=== PATIENT | male | born 1955 | race Caucasian/White ===

== ENCOUNTER → 2016-11-27 | Outpatient (CLI) | payer OTHER ==
[~2016-11-27] MED LIST: ASPIRIN81 M1 PO; PREVACID15 MG PO
--- NOTE | ~2016-11-27 | ST ---
Unit #: [id number] #: [id number] Patient: LEV MARADIAGA [id number] [address] [address] [id number] O MR#: [id number] NAME: LEV MARADIAGA. : 1955 SEX: M STUDY DATE/TIME: UNIT: [facility] ROOM: STUDY DESCRIPTION: Stress Test Attending Physician: Antony Cook M.D. Referring Physician: Antony Cook M.D. Primary Care Physician: Clemencia Montes De Oca Aprn CARDIOLOGY REPORT EXAM Cardiolite study INDICATION Chest discomfort and abnormal EKG. SUMMARY The patient underwent Cardiolite stress test. Patient exercised on Baron protocol for 10 minutes 36 seconds achieving a workload METs of 12.7. The patient's resting heart rate was 46 beats/minute which increased to 129 beats/minute representing 81% of the maximum age predicted heart rate. Patient's resting blood pressure 147/92 mmHg which increased to 182/90 mmHg. The patient's resting ECG showed sinus bradycardia with nonspecific ST segment changes inferolaterally. With exercise, patient is noted to be in sinus tachycardia with isolated PVCs. The patient continues to have nonspecific ST segment changes, not meeting ischemic threshold. CONCLUSION 1. Submaximal treadmill ECG stress test portion of the Cardiolite study. Patient only achieved 81% of the maximum age predicted heart rate. 2. Good exercise tolerance. 3. Normal blood pressure response to exercise. 4. Perfusion imaging details dictated separately. 5. Clinical correlation needed. Dictated by... Tre Yu/caitie TD: 11/28/2016 05:34 JOB #: [id number] Unit #: [id number] #: [id number] Patient: LEV MARADIAGA CARDIOLOGY REPORT Page 1 of 1 X ANTONY COOK MD CARDIOLOGY REPORT
--- NOTE | ~2016-11-27 | TH ---
Unit #: [id number] #: [id number] Patient: LEV MARADIAGA [id number] [address] [address] [id number] O MR#: [id number] NAME: LEV MARADIAGA. : 1955 SEX: M STUDY DATE/TIME: UNIT: [facility] ROOM: STUDY DESCRIPTION: Nuclear Study Attending Physician: Antony Randall M.D. Referring Physician: Antony Randall M.D. Primary Care Physician: Clemencia Montes De Oca Aprn CARDIOLOGY REPORT EXAM Nuclear Perfusion Study INDICATIONS Chest discomfort and abnormal EKG. SUMMARY The patient underwent Cardiolite stress test. The patient's stress portion is submaximal. The patient received a resting dose of 11.68 and a stress dose of 34.5 mCi. On gated imaging, the patient appears to have normal wall motion with preserved ejection fraction with an LVEF if 64%. On perfusion imaging, comparing rest and stress imaging, there appears to be no reversible perfusion defect at the achieved stress level. CONCLUSION 1. No obvious ischemia at 81% of the maximum age predicted heart rate. 2. Preserved LV function. 3. ECG portion dictated separately. 4. Clinical correlation needed. Dictated by... Antony Randall M.D. [place]/df TD: 11/28/2016 05:44 JOB #: [id number] Unit #: [id number] #: [id number] Patient: LEV MARADIAGA CARDIOLOGY REPORT Page 1 of 1 X ANTONY RANDALL MD CARDIOLOGY REPORT
== END | disposition home or self-care (01) ==
LOC: CECH 08:39 → CNUC 08:39
DX: I49.9 Cardiac arrhythmia, unspecified (principal); I10 Essential (primary) hypertension; R94.31 Abnormal electrocardiogram [ECG] [EKG]; I51.7 Cardiomegaly
CPT/HCPCS: 78452; 93017; 93306; A9500